=== PATIENT | male | born 1945 | race Caucasian/White ===

== ENCOUNTER 2017-07-03 09:48 | Day surgery (SDC) | payer MEDICARE ==
[~2017-07-03] VITALS: Ht 172.7 cm; Wt 135.6 kg
[~2017-07-03 09:48] MED LIST: ACETAMINOPHEN500 MG PO; ALBU90OI INH; ALBU90OI61 INH; AMARYL PO; ASPI325 PO; Alphagan P5 ML BOTHEYES; Amaryl2 MG PO; Aspir 8181 MG PO; BRIM.15SO; Benicar Hct 201 EACH PO; COLCHICINE0.6 MG PO; Cosopt Plus10 ML; Cosopt Plus10 ML BOTHEYES; KETO15TC TOP; LATA.005SO; MAGOXI400 PO; MELA3 PO; MELO7.5 PO; METF500 PO; MULTI-DAY PLUS1 EAC1 PO; Mobic15 MG PO; OLME20-12. PO; OXYACE5T PO; OXYB5 PO; PROM25 PO; Percocet 10-321 EACH PO; Percocet 5-3251 EACH PO; RXOXYACE PO; SENN187 PO; TAMS.4ER PO; WARF2.5 PO; Xalatan2.5 ML BOTHEYES
[2017-07-04 05:42] LABS: BASOPHILS ABSOLUTE AUTO 0.01 K/mm3 (0.00-0.23); BASOPHILS PERCENT AUTO 0 % (0-2); EOSINOPHILS ABSOLUTE AUTO 0.04 K/mm3 (0.00-0.68); EOSINOPHILS PERCENT AUTO 0 % (0-6); Hematocrit 33.9 % (37.0-53.0); Hemoglobin 10.5 g/dL (13.5-17.5); IMMATURE GRAN ABSOLUTE AUTO 0.04 K/mm3 (0.00-0.10); IMMATURE GRAN PERCENT AUTO 0 % (0-1); LYMPHOCYTES ABSOLUTE AUTO 1.15 K/mm3 (0.84-5.20); LYMPHOCYTES PERCENT AUTO 12 % (21-46); MONOCYTES ABSOLUTE AUTO 1.11 K/mm3 (0.16-1.47); MONOCYTES PERCENT AUTO 12 % (4-13); Mean Corpuscular HGB 27.2 pg (26.0-34.0); Mean Corpuscular Volume 88 fL (80-100); Mean Platelet Volume 9.3 fL (9.1-12.4); NEUTROPHILS ABSOLUTE AUTO 7.34 K/mm3 (1.96-9.15); NEUTROPHILS PERCENT AUTO 76 % (41-73); Platelet Count 145 K/mm3 (150-400); RDW Coefficient Variation 14.2 % (11.7-14.2); RDW Standard Deviation 45.4 fL (35.1-46.3); Red Blood Cell Count 3.86 M/mm3 (4.30-5.90); White Blood Cell Count 9.69 K/mm3 (4.00-11.30)
[2017-07-04 06:08] LABS: Bun/Creatinine Ratio 18.9 (12.0-20.0); Calcium, Blood 8.3 mg/dL (8.5-10.1); Creatinine, Blood 1.27 mg/dL (0.60-1.20); Magnesium, Blood 2.1 mg/dL (1.6-2.4); Potassium, Blood 4.2 mmol/L (3.5-5.5)
[2017-07-04] MEDS ORDERED: ENOX40I SC (10:42)
[2017-07-04] MEDS ORDERED: Percocet 5-3251 EACH PO (10:43)
[2017-07-04] MEDS ORDERED: PROM25 PO (10:45)
[2017-10-14] MEDS ORDERED: GLIM2 PO (11:07)
[2017-10-14] MEDS ORDERED: LOSARTAN-HCTZ1 EACH PO (11:07)
== END 2017-07-04 13:30 | disposition home or self-care (01) ==
LOC: SURS 09:48 → ORSCMMR 09:48 → SURS 09:48 → PRE IP 09:48 → EDSTATUS 11:30 → PRE IP 11:30 → SURS 14:16 → ORSCMMR 07-04 13:30 → SURS 07-04 13:30
PROVIDERS: Orthopaedic Surgery
PROC: 0SRC0J9 Replacement of Right Knee Joint with Synthetic Substitute, Cemented, Open Approach (ICD-10-PCS; principal; 2017-07-03 11:30)
DX: M17.11 Unilateral primary osteoarthritis, right knee (principal); I10 Essential (primary) hypertension; E11.9 Type 2 diabetes mellitus without complications; E66.01 Morbid (severe) obesity due to excess calories; Z68.42 Body mass index [BMI] 45.0-49.9, adult; Z79.899 Other long term (current) drug therapy; Z79.82 Long term (current) use of aspirin
CPT/HCPCS: 36415; 73560-RT; 80048; 82947; 83735; 85025; 86850; 86900; 86901; 88300; 94640; 94760; 97110; 97116; 97161; C1713; C1776; G8978; G8979; G8980; J0171; J0690; J0735; J1100; J1650; J1815; J1885; J2250; J2370; J2405; J2795; J7120

== ENCOUNTER 2017-12-27 13:51 | Observation (INO) | payer MEDICARE ==
[~2017-12-27] VITALS: Ht 175.3 cm; Wt 137.2 kg
[~2017-12-27 13:51] MED LIST changes: +ENOX40I SC; +GLIM2 PO; +LOSARTAN-HCTZ1 EACH PO
[2017-12-27 14:44] LABS: BASOPHILS ABSOLUTE AUTO 0.03 K/mm3 (0.00-0.23); BASOPHILS PERCENT AUTO 0 % (0-2); EOSINOPHILS ABSOLUTE AUTO 0.17 K/mm3 (0.00-0.68); EOSINOPHILS PERCENT AUTO 2 % (0-6); Hematocrit 42.3 % (37.0-53.0); Hemoglobin 13.2 g/dL (13.5-17.5); IMMATURE GRAN ABSOLUTE AUTO 0.04 K/mm3 (0.00-0.10); IMMATURE GRAN PERCENT AUTO 1 % (0-1); LYMPHOCYTES ABSOLUTE AUTO 1.05 K/mm3 (0.84-5.20); LYMPHOCYTES PERCENT AUTO 13 % (21-46); MONOCYTES ABSOLUTE AUTO 0.72 K/mm3 (0.16-1.47); MONOCYTES PERCENT AUTO 9 % (4-13); Mean Corpuscular HGB Conc 31.2 g/dL (31.5-36.5); Mean Corpuscular Volume 83 fL (80-100); Mean Platelet Volume 8.7 fL (9.1-12.4); NEUTROPHILS ABSOLUTE AUTO 5.96 K/mm3 (1.96-9.15); NEUTROPHILS PERCENT AUTO 75 % (41-73); Platelet Count 204 K/mm3 (150-400); RDW Coefficient Variation 15.3 % (11.7-14.2); RDW Standard Deviation 46.1 fL (35.1-46.3); Red Blood Cell Count 5.08 M/mm3 (4.30-5.90); White Blood Cell Count 7.97 K/mm3 (4.00-11.30)
[2017-12-27 14:58] LABS: Alanine Aminotransfer (ALT/SGP 28 U/L (12-78); Albumin, Blood 3.8 g/dL (3.4-5.0); Alk Phos 79 U/L (50-136); Anion Gap 8 mmol/L (6-16); Aspartate Aminotrans (AST/SGOT 16 U/L (12-37); Bilirubin, Total 0.8 mg/dL (0.1-1.0); Blood Urea Nitrogen 19 mg/dL (8-24); Bun/Creatinine Ratio 19.5 (12.0-20.0); CO2, Blood 26 mmol/L (21-32); Calcium, Blood 9.2 mg/dL (8.5-10.1); Chloride, Blood 102 mmol/L (98-108); Creatinine, Blood 0.97 mg/dL (0.60-1.20); Globulin, Blood 3.9 g/dL (2.2-4.0); Glomerular Filtration Rate >60 (60-); Glucose, Blood 212 mg/dL (70-99); Potassium, Blood 4.3 mmol/L (3.5-5.5); Sodium, Blood 136 mmol/L (136-145); Total Protein, Blood 7.7 g/dL (6.4-8.2)
[2017-12-27] MEDS ORDERED: TRAM50 PO (15:15)
[2017-12-27 17:53] LABS: Cholesterol 172 mg/dL (50-200); HDL Cholesterol 58 mg/dL (>39); LDL/HDL RATIO 1.6; Low Density Lipoprotein Chol 96 mg/dL (0-110); Triglycerides 92 mg/dL (30-160); Very Low Density Lipoprot Chol 18 mg/dL (6-32)
[2017-12-27 18:07] LABS: Magnesium, Blood 2.1 mg/dL (1.6-2.4)
[2017-12-27 18:25] LABS: Thyroid Stimulating Hormone 1.41 uIU/mL (0.360-4.800)
[2017-12-28] MEDS ORDERED: LATANOPROST 0.7.5 ML BOTHEYES (15:34)
[2017-12-28] MEDS ORDERED: ASPI325 PO (15:34)
[2017-12-28] MEDS ORDERED: ATOR40TA PO (15:35)
== END 2017-12-28 16:04 | disposition home or self-care (01) ==
LOC: ER 13:51 → MEDS 13:52 → ENPENDDIS 12-28 15:00 → MEDS 12-28 16:04
PROVIDERS: Emergency Medicine; Nurse Practitioner Acute Care
DX: G45.9 Transient cerebral ischemic attack, unspecified (principal); I10 Essential (primary) hypertension; E11.9 Type 2 diabetes mellitus without complications; R51 Headache; E66.9 Obesity, unspecified; E88.81 Metabolic syndrome and other insulin resistance; M19.90 Unspecified osteoarthritis, unspecified site; Z79.84 Long term (current) use of oral hypoglycemic drugs; Z86.718 Personal history of other venous thrombosis and embolism; Z79.1 Long term (current) use of non-steroidal anti-inflammatories (NSAID); Z79.899 Other long term (current) drug therapy; Z68.41 Body mass index [BMI] 40.0-44.9, adult
CPT/HCPCS: 36415; 70450; 80053; 80061; 81000; 82607; 82746; 82947; 83735; 84443; 85025; 85651; 93306; 93880; 96361; 96372; 96374; 96375; 96376; 97161; 99285-25; G0378; G8978; G8979; G8980; J1650; J1885; J2405; J3010; J7030

== ENCOUNTER 2018-06-11 11:37 | Observation (INO) | payer MEDICARE ==
[~2018-06-11] VITALS: Ht 172.7 cm; Wt 134.9 kg
[~2018-06-11 11:37] MED LIST changes: -GLIM2 PO; +LATANOPROST 0.7.5 ML BOTHEYES; -LOSARTAN-HCTZ1 EACH PO; -Mobic15 MG PO; +TRAM50 PO
[2018-06-11] MEDS ORDERED: DORZOLAMIDE-TI1 EACH BOTHEYES (12:08)
[2018-06-11] MEDS ORDERED: LATANOPROST 0.7.5 ML OP (12:08)
[2018-06-11] MEDS ORDERED: METF500C PO (12:09)
[2018-06-11] MEDS ORDERED: FREESTYLE LITE (12:09)
[2018-06-11] MEDS ORDERED: Ketoconazole15 GM TOP (12:09)
[2018-06-11] MEDS ORDERED: LATANOPROST 0.7.5 ML BOTHEYES (12:09)
[2018-06-11] MEDS ORDERED: CLOP75 PO (12:09)
[2018-06-11] MEDS ORDERED: Alphagan P5 ML BOTHEYES (12:09)
[2018-06-11] MEDS ORDERED: ALBU90OI INH (12:09)
[2018-06-11 12:10] LABS: BASOPHILS ABSOLUTE AUTO 0.04 K/mm3 (0.00-0.23); BASOPHILS PERCENT AUTO 1 % (0-2); EOSINOPHILS ABSOLUTE AUTO 0.27 K/mm3 (0.00-0.68); EOSINOPHILS PERCENT AUTO 4 % (0-6); Hematocrit 42.6 % (37.0-53.0); Hemoglobin 13.1 g/dL (13.5-17.5); IMMATURE GRAN ABSOLUTE AUTO 0.03 K/mm3 (0.00-0.10); IMMATURE GRAN PERCENT AUTO 0 % (0-1); LYMPHOCYTES ABSOLUTE AUTO 1.01 K/mm3 (0.84-5.20); LYMPHOCYTES PERCENT AUTO 15 % (21-46); MONOCYTES ABSOLUTE AUTO 0.54 K/mm3 (0.16-1.47); MONOCYTES PERCENT AUTO 8 % (4-13); Mean Corpuscular HGB 27.3 pg (26.0-34.0); Mean Corpuscular HGB Conc 30.8 g/dL (31.5-36.5); Mean Corpuscular Volume 89 fL (80-100); Mean Platelet Volume 9.1 fL (9.1-12.4); NEUTROPHILS ABSOLUTE AUTO 5.02 K/mm3 (1.96-9.15); NEUTROPHILS PERCENT AUTO 73 % (41-73); Platelet Count 153 K/mm3 (150-400); RDW Coefficient Variation 14.7 % (11.7-14.2); RDW Standard Deviation 47.8 fL (35.1-46.3); Red Blood Cell Count 4.79 M/mm3 (4.30-5.90); White Blood Cell Count 6.91 K/mm3 (4.00-11.30)
[2018-06-11 12:16] LABS: Alanine Aminotransfer (ALT/SGP 22 U/L (12-78); Albumin, Blood 3.8 g/dL (3.4-5.0); Alk Phos 71 U/L (50-136); Anion Gap 7 mmol/L (6-16); Aspartate Aminotrans (AST/SGOT 10 U/L (12-37); Bilirubin, Total 1.1 mg/dL (0.1-1.0); Blood Urea Nitrogen 15 mg/dL (8-24); Bun/Creatinine Ratio 14.9 (12.0-20.0); CO2, Blood 27 mmol/L (21-32); Calcium, Blood 8.9 mg/dL (8.5-10.1); Chloride, Blood 107 mmol/L (98-108); Creatinine, Blood 1.01 mg/dL (0.60-1.20); Globulin, Blood 3.7 g/dL (2.2-4.0); Glomerular Filtration Rate >60 (60-); Glucose, Blood 192 mg/dL (70-99); Potassium, Blood 4.5 mmol/L (3.5-5.5); Sodium, Blood 141 mmol/L (136-145); Total Protein, Blood 7.5 g/dL (6.4-8.2)
[2018-06-11 12:28] LABS: International Normalized Ratio 1.03; Prothrombin Time Results 10.9 Sec (9.7-11.5)
[2018-06-11] MEDS ORDERED: GLIM2 PO (17:07)
[2018-06-11] MEDS ORDERED: SAXA2.5T PO (17:08)
[2018-06-11] MEDS ORDERED: LOSARTAN-HCTZ1 EACH PO (17:09)
[2018-06-11] MEDS ORDERED: Mobic15 MG PO (17:10)
[2018-06-11] MEDS ORDERED: ATOR40TA PO (17:10)
[2018-06-11] MEDS ORDERED: COLCHICINE0.6 MG PO (17:12)
[2018-06-11] MEDS ORDERED: MAGNESIUM400 M1 PO (17:14)
[2018-06-11] MEDS ORDERED: Aspirin EC81 MG PO (17:14)
[2018-06-11] MEDS ORDERED: MELATONIN 5 MG1 EACH PO (17:15)
--- NOTE | 2018-06-11 19:36 | NUR ---
pt admitted to room 360 from ed at 1825. settled in to bed and oriented to room. at bedside. hearing aides placed for better hearing. difficulty finding words and expressing himself showing frustration while attempting to find what he wants to say. report given to oncoming rn. pt does state he felf dizzy when standing and transferring to bed from [facility]. bed alarm on and call button within reach
[2018-06-12 04:56] LABS: BASOPHILS ABSOLUTE AUTO 0.03 K/mm3 (0.00-0.23); BASOPHILS PERCENT AUTO 0 % (0-2); EOSINOPHILS ABSOLUTE AUTO 0.15 K/mm3 (0.00-0.68); EOSINOPHILS PERCENT AUTO 2 % (0-6); Hematocrit 40.1 % (37.0-53.0); Hemoglobin 12.4 g/dL (13.5-17.5); IMMATURE GRAN ABSOLUTE AUTO 0.02 K/mm3 (0.00-0.10); IMMATURE GRAN PERCENT AUTO 0 % (0-1); LYMPHOCYTES ABSOLUTE AUTO 1.82 K/mm3 (0.84-5.20); LYMPHOCYTES PERCENT AUTO 27 % (21-46); MONOCYTES ABSOLUTE AUTO 0.78 K/mm3 (0.16-1.47); MONOCYTES PERCENT AUTO 12 % (4-13); Mean Corpuscular HGB 27.1 pg (26.0-34.0); Mean Corpuscular HGB Conc 30.9 g/dL (31.5-36.5); Mean Corpuscular Volume 88 fL (80-100); Mean Platelet Volume 9.5 fL (9.1-12.4); NEUTROPHILS ABSOLUTE AUTO 3.97 K/mm3 (1.96-9.15); NEUTROPHILS PERCENT AUTO 59 % (41-73); Platelet Count 139 K/mm3 (150-400); RDW Coefficient Variation 14.6 % (11.7-14.2); RDW Standard Deviation 46.7 fL (35.1-46.3); Red Blood Cell Count 4.57 M/mm3 (4.30-5.90); White Blood Cell Count 6.77 K/mm3 (4.00-11.30)
--- NOTE | 2018-06-12 05:06 | NUR ---
SHIF SUMMARY PT ADMITTED WITH CVA, HAS A HARD TIME WITH EXPRESSING HIS WORDS. PT UP TO BATHROOM WITH SBA. IVF'S INFUSING PER PUMP AT 100ML/HR WITHOUT DIFFICULTY. PT OFFERS NO C/O'S, DENIES PAIN. HAND GRASPS STRONG AND EQUAL, LOWER EXTREMITIES WITH GOOD STRENGTH WELL. WILL CONTINUE TO MONITOR.
[2018-06-12 05:20] LABS: Alanine Aminotransfer (ALT/SGP 23 U/L (12-78); Albumin, Blood 3.4 g/dL (3.4-5.0); Alk Phos 64 U/L (50-136); Anion Gap 8 mmol/L (6-16); Aspartate Aminotrans (AST/SGOT 17 U/L (12-37); Bilirubin, Total 1.2 mg/dL (0.1-1.0); Blood Urea Nitrogen 12 mg/dL (8-24); Bun/Creatinine Ratio 12.2 (12.0-20.0); CHOL/HDL RATIO 2.2; CO2, Blood 27 mmol/L (21-32); Calcium, Blood 8.5 mg/dL (8.5-10.1); Chloride, Blood 108 mmol/L (98-108); Cholesterol 105 mg/dL (50-200); Creatinine, Blood 0.98 mg/dL (0.60-1.20); Globulin, Blood 3.5 g/dL (2.2-4.0); Glomerular Filtration Rate >60 (60-); Glucose, Blood 139 mg/dL (70-99); HDL Cholesterol 47 mg/dL (>39); LDL/HDL RATIO 0.8; Low Density Lipoprotein Chol 38 mg/dL (0-110); Magnesium, Blood 2.1 mg/dL (1.6-2.4); Potassium, Blood 3.9 mmol/L (3.5-5.5); Sodium, Blood 143 mmol/L (136-145); Total Protein, Blood 6.9 g/dL (6.4-8.2); Triglycerides 101 mg/dL (30-160); Very Low Density Lipoprot Chol 20 mg/dL (6-32)
[2018-06-12 05:24] LABS: Thyroid Stimulating Hormone 0.889 uIU/mL (0.360-4.800)
--- NOTE | 2018-06-12 17:06 | NUR ---
DISCHARGE SUMMARY PT DISCHARGED HOME WITH SPOUSE. IV DC'D AND BELONGINGS RETURNED. PT EDUCATED ON STROKE, MEDICATIONS, INSTRUCTED TO MANAGER OF CONSTRUCTION MEDICATIONS FROM PHARMACY AND TO FOLLOW UP WITH PCP WITHIN 1 WEEK. PT LEFT ROOM IN WHEELCHAIR WITH RN ESCORT JUST PRIOR TO THIS NOTE.
[2018-06-14 14:07] LABS: ACTIVATED PROTEIN C RESISTANCE 3.1 ratio (2.2-3.5)
== END 2018-06-12 16:55 | disposition home or self-care (01) ==
LOC: ER 11:37 → MEDS 11:38 → ENPENDDIS 06-12 14:44 → MEDS 06-12 16:55
PROVIDERS: Physician Assistant; ADMIT Internal Medicine
DX: I63.9 Cerebral infarction, unspecified (principal); E11.9 Type 2 diabetes mellitus without complications; I10 Essential (primary) hypertension; Z86.718 Personal history of other venous thrombosis and embolism
CPT/HCPCS: 36415; 70450; 70496; 70551; 80053; 80061; 81241; 82607; 82746; 82947; 83036; 83090; 83735; 84443; 85025; 85303; 85306; 85307; 85384; 85610; 85730; 92523; 93005; 93010; 93306; 96360; 96361; 99285-25; G0378; J1650; J7030; Q9967

== ENCOUNTER 2020-07-24 19:05 | Emergency (ER) | payer MEDICARE ==
[~2020-07-24] VITALS: Ht 172.7 cm; Wt 138.3 kg
[~2020-07-24 19:05] MED LIST changes: +ATOR40TA PO; +Aspirin EC81 MG PO; +CLOP75 PO; +DORZOLAMIDE-TI1 EACH BOTHEYES; +FREESTYLE LITE; +GLIM2 PO; +Ketoconazole15 GM TOP; +LATANOPROST 0.7.5 ML OP; +LOSARTAN-HCTZ1 EACH PO; +MAGNESIUM400 M1 PO; +MELATONIN 5 MG1 EACH PO; +METF500C PO; +Mobic15 MG PO; +SAXA2.5T PO
[2020-07-24] MEDS ORDERED: PIOG30 PO (19:24)
[2020-07-24] MEDS ORDERED: LYRICA75 MG PO (19:25)
[2020-07-24] MEDS ORDERED: MONT10T PO (19:26)
[2020-07-24] MEDS ORDERED: Methazolamide50 MG PO (19:27)
[2020-07-24] MEDS ORDERED: RHOPRESSA2.5 ML (19:29)
[2020-07-24 19:46] LABS: BASOPHILS ABSOLUTE AUTO 0.03 K/mm3 (0.00-0.23); BASOPHILS PERCENT AUTO 0 % (0-2); EOSINOPHILS ABSOLUTE AUTO 0.22 K/mm3 (0.00-0.68); EOSINOPHILS PERCENT AUTO 3 % (0-6); Hematocrit 40.7 % (37.0-53.0); Hemoglobin 12.4 g/dL (13.5-17.5); IMMATURE GRAN ABSOLUTE AUTO 0.04 K/mm3 (0.00-0.10); IMMATURE GRAN PERCENT AUTO 1 % (0-1); LYMPHOCYTES ABSOLUTE AUTO 1.66 K/mm3 (0.84-5.20); LYMPHOCYTES PERCENT AUTO 24 % (21-46); MONOCYTES ABSOLUTE AUTO 0.76 K/mm3 (0.16-1.47); MONOCYTES PERCENT AUTO 11 % (4-13); Mean Corpuscular HGB 27.7 pg (26.0-34.0); Mean Corpuscular HGB Conc 30.5 g/dL (31.5-36.5); Mean Corpuscular Volume 91 fL (80-100); NEUTROPHILS ABSOLUTE AUTO 4.21 K/mm3 (1.96-9.15); NEUTROPHILS PERCENT AUTO 61 % (41-73); Platelet Count 172 K/mm3 (150-400); RDW Coefficient Variation 15.9 % (11.7-14.2); RDW Standard Deviation 52.4 fL (35.1-46.3); Red Blood Cell Count 4.47 M/mm3 (4.30-5.90); White Blood Cell Count 6.92 K/mm3 (4.00-11.30)
[2020-07-24 20:03] LABS: Alanine Aminotransfer (ALT/SGP 15 U/L (12-78); Albumin, Blood 3.9 g/dL (3.4-5.0); Albumin/Globulin Ratio 0.9 (0.8-1.8); Alk Phos 77 U/L (50-136); Anion Gap 4 mmol/L (6-16); Aspartate Aminotrans (AST/SGOT 19 U/L (12-37); Bilirubin, Total 0.7 mg/dL (0.1-1.0); Blood Urea Nitrogen 18 mg/dL (8-24); Bun/Creatinine Ratio 17.6 (12.0-20.0); CO2, Blood 29 mmol/L (21-32); Calcium, Blood 9.6 mg/dL (8.5-10.1); Chloride, Blood 107 mmol/L (98-108); Creatinine, Blood 1.02 mg/dL (0.60-1.20); Globulin, Blood 4.2 g/dL (2.2-4.0); Glomerular Filtration Rate >60 (60-); Glucose, Blood 83 mg/dL (70-99); Potassium, Blood 3.9 mmol/L (3.5-5.5); Sodium, Blood 140 mmol/L (136-145); Total Protein, Blood 8.1 g/dL (6.4-8.2); Troponin I 0.032 ng/mL (0.000-0.040)
[2020-07-24 20:04] LABS: Source, Urine Clean Catch
[2020-07-24 20:08] LABS: Bilirubin, Urine Neg (Neg); Blood, Urine 1+ (Neg); Glucose Qualitative, Urine Neg (Neg); Ketones, Urine Neg (Neg); Leukocyte Esterase, Urine 2+ (Neg); Nitrite, Urine Neg (Neg); Protein, Urine Neg (Neg); Specific Gravity, Urine 1.025 (1.003-1.022); Urobilinogen, Urine NORM (Normal)
[2020-07-24 20:32] LABS: Appearance, Urine Clear (Clear); Color, Urine Yellow (P-Yellow)
[2020-07-24 20:33] LABS: Bacteria Few /hpf; Red Blood Cells, Urine 0-2 /hpf (0-2); Squamous Epithelial Cells Not Seen /hpf (Few)
== END 2020-07-24 23:35 | disposition home or self-care (01) ==
LOC: ER 19:05
PROVIDERS: Physician Assistant
DX: Z00.00 Encounter for general adult medical examination without abnormal findings (principal); I10 Essential (primary) hypertension; E11.39 Type 2 diabetes mellitus with other diabetic ophthalmic complication; H42 Glaucoma in diseases classified elsewhere; Z86.73 Personal history of transient ischemic attack (TIA), and cerebral infarction without residual deficits; Z79.82 Long term (current) use of aspirin; Z79.02 Long term (current) use of antithrombotics/antiplatelets
CPT/HCPCS: 80053; 81001; 84484; 85025; 87086; 93005; 93010; 99285-25

== ENCOUNTER 2021-07-04 08:49 | Day surgery (SDC) | payer OTHER, MEDICARE ==
[~2021-07-04] VITALS: Ht 167.6 cm; Wt 137.8 kg
[~2021-07-04 08:49] MED LIST changes: +ALBUTEROL0.63 MG/3 INH; +LYRICA75 MG PO; +MONT10T PO; +Methazolamide50 MG PO; +PIOG30 PO; +RHOPRESSA2.5 ML
--- NOTE | 2021-07-04 10:31 | NUR ---
07/04/21 1031 Shelly Mak LATE ENTRY 1ST IV ATTEMPT IN RH INFILTRATED, ATTEMPTED BY KANDICE MORRELL 2ND IV ATTEMPT IN RW UNSUCCESSFUL, ATTEMPTED BY KANDICE MORRELL 3RD IV ATTEMPT IN RW SUCCESSFUL, 20G PLACED, STARTED BY KANDICE STALLWORTH
== END 2021-07-04 11:27 | disposition home or self-care (01) ==
LOC: ORSCSDS 08:49
PROVIDERS: Surgery
PROC: 0DJD8ZZ Inspection of Lower Intestinal Tract, Via Natural or Artificial Opening Endoscopic (ICD-10-PCS; principal; 2021-07-04 10:00)
DX: Z12.11 Encounter for screening for malignant neoplasm of colon (principal); Z86.010 Personal history of colon polyps; K57.30 Diverticulosis of large intestine without perforation or abscess without bleeding; I10 Essential (primary) hypertension; E11.9 Type 2 diabetes mellitus without complications; E66.9 Obesity, unspecified; Z68.42 Body mass index [BMI] 45.0-49.9, adult; Z79.01 Long term (current) use of anticoagulants; Z79.82 Long term (current) use of aspirin; Z79.899 Other long term (current) drug therapy
CPT/HCPCS: 82947; J2704; J7120

== ENCOUNTER 2022-03-17 04:06 | Emergency (ER) | payer OTHER ==
[~2022-03-17] VITALS: Ht 175.3 cm; Wt 147.4 kg
[2022-03-17 04:59] LABS: BASOPHILS ABSOLUTE AUTO 0.04 K/mm3 (0.00-0.23); BASOPHILS PERCENT AUTO 0 % (0-2); EOSINOPHILS ABSOLUTE AUTO 0.29 K/mm3 (0.00-0.68); EOSINOPHILS PERCENT AUTO 3 % (0-6); Hematocrit 40.3 % (37.0-53.0); Hemoglobin 12.3 g/dL (13.5-17.5); IMMATURE GRAN ABSOLUTE AUTO 0.02 K/mm3 (0.00-0.10); IMMATURE GRAN PERCENT AUTO 0 % (0-1); LYMPHOCYTES ABSOLUTE AUTO 1.26 K/mm3 (0.84-5.20); LYMPHOCYTES PERCENT AUTO 12 % (21-46); MONOCYTES ABSOLUTE AUTO 0.73 K/mm3 (0.16-1.47); MONOCYTES PERCENT AUTO 7 % (4-13); Mean Corpuscular HGB 28.3 pg (26.0-34.0); Mean Corpuscular HGB Conc 30.5 g/dL (31.5-36.5); Mean Corpuscular Volume 93 fL (80-100); Mean Platelet Volume 9.3 fL (9.1-12.4); NEUTROPHILS ABSOLUTE AUTO 7.84 K/mm3 (1.96-9.15); NEUTROPHILS PERCENT AUTO 77 % (41-73); Platelet Count 168 K/mm3 (150-400); RDW Coefficient Variation 16.3 % (11.7-14.2); RDW Standard Deviation 55.1 fL (35.1-46.3); Red Blood Cell Count 4.34 M/mm3 (4.30-5.90); White Blood Cell Count 10.18 K/mm3 (4.00-11.30)
[2022-03-17 05:10] LABS: Albumin, Blood 3.7 g/dL (3.4-5.0); Albumin/Globulin Ratio 0.9 (0.8-1.8); Bilirubin, Total 0.8 mg/dL (0.1-1.0); Bun/Creatinine Ratio 27.2 (12.0-20.0); Calcium, Blood 9.1 mg/dL (8.5-10.1); Creatinine, Blood 0.92 mg/dL (0.60-1.20); Globulin, Blood 4.1 g/dL (2.2-4.0); Potassium, Blood 4.2 mmol/L (3.5-5.5); Total Protein, Blood 7.8 g/dL (6.4-8.2)
[2022-03-17 05:15] LABS: Magnesium, Blood 2.3 mg/dL (1.6-2.4)
== END 2022-03-17 08:05 | disposition home or self-care (01) ==
LOC: ER 04:06
PROVIDERS: Student in an Organized Health Care Education/Training Program
DX: R10.13 Epigastric pain (principal); I10 Essential (primary) hypertension; E11.9 Type 2 diabetes mellitus without complications; Z79.84 Long term (current) use of oral hypoglycemic drugs; Z79.899 Other long term (current) drug therapy; Z86.73 Personal history of transient ischemic attack (TIA), and cerebral infarction without residual deficits
CPT/HCPCS: 71046; 80053; 83690; 83735; 84484; 85025; 93005; 93010; A9270

== ENCOUNTER → 2022-10-23 | Outpatient (CLI) | payer OTHER | LOC: LAB 18:50 → LAB SHORT 18:50 | DX: E11.9 Type 2 diabetes mellitus without complications (principal) | CPT/HCPCS: 83036 ==